=== PATIENT | female | born 1995 | race Two or more races ===

== ENCOUNTER 2020-06-18 11:47 | Emergency (ER) | payer SELFPAY ==
[~2020-06-18] VITALS: Ht 157.5 cm; Wt 81.6 kg
[2020-06-18 11:54] VITALS: BP 139/63
== END 2020-06-18 13:22 | disposition home or self-care (01) ==
LOC: ER 11:47
DX: J03.90 Acute tonsillitis, unspecified (principal)

== ENCOUNTER 2023-02-02 11:04 | Emergency (ER) | payer SELFPAY ==
[~2023-02-02] VITALS: Ht 157.5 cm; Wt 89.5 kg
[2023-02-02 11:46] LABS: Basophils # (auto) 0.1 10 ^3/uL (0-0.2); Basophils % (auto) 0.8 % (0.0-2.0); Eosinophils # (auto) 0.1 10 ^3/uL (0-0.8); Eosinophils % (auto) 1.1 % (0.0-7.0); Hematocrit 39.5 % (36.0-46.0); Hemoglobin 13.5 g/dL (12.2-16.2); Lymphocytes # (auto) 3.1 10 ^3/uL (0.4-5.4); Lymphocytes % (auto) 37.5 % (10.0-50.0); Mean Corpuscular Hemoglobin 28.2 pg (28.0-32.0); Mean Corpuscular Hgb Conc. 34.3 g/dL (32.0-36.0); Mean Corpuscular Volume 82.2 fL (80.0-100.0); Monocytes # (auto) 0.5 10 ^3/uL (0-1.3); Monocytes % (auto) 5.5 % (0.0-12.0); Neutrophils # (auto) 4.5 10 ^3/uL (1.6-8.6); Neutrophils % (auto) 55.1 % (37.0-80.0); Nucleated Red Blood Cells % 0.1 %; White Blood Cell 8.3 10^3/uL (4.4-10.8)
[2023-02-02 12:08] LABS: Albumin 3.4 g/dL (3.4-5.0); Potassium 3.9 mmol/L (3.5-5.1)
[2023-02-02 12:14] LABS: BUN/Creatinine Ratio 13.1 (10.0-20.0); Bilirubin, Total 0.7 mg/dL (0.2-1.0); Total Protein 7.5 g/dL (6.4-8.2)
[2023-02-02 12:49] LABS: Urine Bacteria NONE SEEN /hpf (None Seen); Urine Blood Negative /uL (Negative); Urine Mucus FEW (None Seen); Urine Specific Gravity 1.022 (1.001-1.035); Urine WBC 5 /hpf (0 - 5)
[2023-02-02] MEDS ORDERED: IOHEXOL 300 MG/ML 100ML BOTTLE IJ ONE (15:40)
[2023-02-02] MEDS ORDERED: CEPH-322 PO (17:05)
[2023-02-02 17:20] VITALS: BP 132/54
== END 2023-02-02 17:22 | disposition home or self-care (01) ==
LOC: ER 11:04
DX: N39.0 Urinary tract infection, site not specified (principal); F17.210 Nicotine dependence, cigarettes, uncomplicated; F12.90 Cannabis use, unspecified, uncomplicated; Z90.49 Acquired absence of other specified parts of digestive tract; Z98.890 Other specified postprocedural states
CPT/HCPCS: 36415; 74177; 80053; 81001; 81025; 85025; 99285; Q9967